=== PATIENT | female | born 1985 | race Caucasian/White ===

== ENCOUNTER 2016-08-24 07:50 | Emergency (ER) | payer MEDICAID ==
[2016-08-24] MEDS ORDERED: IBUPROFEN 800 MG TABLET PO ONE (08:23)
[2016-08-24] MEDS ORDERED: PREDNISONE 20 MG TABLET PO ONE (08:23)
[2016-08-24] MEDS ORDERED: CYCLOBENZAPRINE HCL 10 MG TABLET PO ONE (08:23)
--- NOTE | 2016-08-24 08:25 | ER Document Report ---
ED Hip Pain/Injury - General Chief Complaint: Hip Pain Stated Complaint: LEG/HIP PAIN Time Seen by Provider: 08/24/16 08:01 Mode of Arrival: Ambulatory Information source: Patient Notes: Patient is a 30-year-old female who presents to the ER today for right-sided hip pain radiating down the right leg with numbness and tingling. Patient had a history of multiple back surgeries and sciatica. She states that the only recent injury is 3 weeks ago when she did fall on that right hip. TRAVEL OUTSIDE OF THE [place] IN LAST 30 DAYS: No - Related Data Allergies/Adverse Reactions: codeine [Codeine] Allergy (Verified 08/24/16 07:54) ketorolac tromethamine [From Toradol] Allergy (Verified 08/24/16 07:54) Penicillins Allergy (Verified 08/24/16 07:54) Past Medical History - Social History Smoking Status: Current Every Day Smoker Frequency of alcohol use: None Drug Abuse: None Family History: Reviewed & Not Pertinent Patient has suicidal ideation: No Patient has homicidal ideation: No Renal/ Medical History: Denies: Hx Peritoneal Dialysis Malignancy Medical History: Reports: Hx Cervical Cancer Musculoskeltal Medical History: Reports Hx Musculoskeletal Deformity, Reports Hx Musculoskeletal Trauma Psychiatric Medical History: Reports: Hx Anxiety, Hx Attention Deficit Hyperactivity Disorder, Hx Depression Past Surgical History: Reports: Hx Cholecystectomy, Hx Gynecologic Surgery - left salpingectomy, oophrectomy, hysterectomy, Hx Hysterectomy, Hx Oral Surgery - 12-31-14, Hx Orthopedic Surgery - discectomy - Immunizations Immunizations up to date: Yes Hx Diphtheria, Pertussis, Tetanus Vaccination: Yes Review of Systems - Review of Systems Constitutional: No symptoms reported EENT: No symptoms reported Cardiovascular: No symptoms reported Respiratory: No symptoms reported Gastrointestinal: No symptoms reported Genitourinary: No symptoms reported Female Genitourinary: No symptoms reported Musculoskeletal: See HPI Skin: No symptoms reported Hematologic/Lymphatic: No symptoms reported Neurological/Psychological: No symptoms reported Physical Exam - Vital signs Vitals: Temp Pulse Resp BP Pulse Ox 98.2 F 82 16 125/70 99 08/24/16 07:54 08/24/16 07:54 08/24/16 07:54 08/24/16 07:54 08/24/16 07:54 - Notes Notes: PHYSICAL EXAMINATION: GENERAL: Uncomfortable appearing, but in no acute distress. HEAD: Atraumatic, normocephalic. EYES: Pupils equal round and reactive to light, extraocular movements intact, sclera anicteric, conjunctiva are normal. NECK: Normal range of motion, supple without lymphadenopathy LUNGS: CTAB and equal. No wheezes rales or rhonchi. HEART: Regular rate and rhythm without murmurs ABDOMEN: Soft, no tenderness. No guarding, no rebound BACK: right SI joint tender to palpation, no vertebral tenderness, normal ROM GI/: no CVA tenderness EXTREMITIES: Normal range of motion, no pitting edema. No cyanosis. NEUROLOGICAL: Cranial nerves grossly intact. Normal sensory/motor exams. PSYCH: Normal mood, normal affect. SKIN: Warm, Dry, normal turgor, no rashes or lesions noted Course - Re-evaluation Re-evalutation: 08/26/16 11:21 x rays normal. - Vital Signs Vital signs: Temp Pulse Resp BP Pulse Ox 97.9 F 72 12 103/61 99 08/24/16 10:32 08/24/16 10:32 08/24/16 10:32 08/24/16 10:32 08/24/16 10:32 Discharge - Discharge Clinical Impression: Sciatica, right side Condition: Stable Disposition: HOME, SELF-CARE Additional Instructions: Return immediately for any new or worsening symptoms. Follow up with primary care provider, call tomorrow to make followup appointment. Prescriptions: Cyclobenzaprine HCl [Flexeril 10 mg Tablet] 10 mg PO TIDP PRN #15 tab PRN Reason: Ibuprofen [Motrin 800 mg Tablet] 800 mg PO Q8H PRN #30 tab PRN Reason: Forms: Return to Work
[2016-08-24] MEDS ORDERED: ONDANSETRON 4 MG TAB.RAPDIS PO ONE (08:55)
--- NOTE | 2016-08-24 09:37 | RADIOLOGY REPORT (SQ) ---
EXAM DESCRIPTION: L SPINE 2 VIEWS COMPLETED DATE/TIME: 08/24/2016 9:30 am REASON FOR STUDY: fall, pain since, hx back sg COMPARISON: None. NUMBER OF VIEWS: Three views. TECHNIQUE: AP, lateral and sacral radiographic images acquired of the lumbar spine. LIMITATIONS: None. FINDINGS: MINERALIZATION: Normal. SEGMENTATION: Normal. No transitional anatomy. ALIGNMENT: Normal. VERTEBRAE: Maintained height. No fracture or worrisome bone lesion. DISCS: Preserved height. No significant osteophytes or end plate irregularity. POSTERIOR ELEMENTS: Pedicles and facets are intact. No pars defect or posterior arch defects. HARDWARE: There are postsurgical changes at L5-S1 stable in appearance. PARASPINAL SOFT TISSUES: Normal. PELVIS: Intact as visualized. No fractures or worrisome bone lesions. SI joints intact. OTHER: No other significant finding. IMPRESSION: Postsurgical changes at L5-S1. No acute findings. TECHNICAL DOCUMENTATION: JOB ID: [id number] [employer] All Rights Reserved
--- NOTE | 2016-08-24 09:38 | RADIOLOGY REPORT (SQ) ---
EXAM DESCRIPTION: SACROILIAC JOINTS 3 OR MORE COMPLETED DATE/TIME: 08/24/2016 9:30 am REASON FOR STUDY: fall, pain since, hx back sg COMPARISON: None. NUMBER OF VIEWS: Three views. TECHNIQUE: AP and oblique views of the sacroiliac joints. LIMITATIONS: None. FINDINGS: MINERALIZATION: Normal. BONES: No acute fracture or dislocation. No worrisome bone lesions. No significant osteophytes. JOINTS: The sacroiliac joints are patent. No unusual widening, sclerosis, or fusion. SOFT TISSUES: No soft tissue swelling. No radio-opaque foreign body. OTHER: There are postsurgical changes L5-S1. IMPRESSION: NORMAL STUDY OF THE SACROILIAC JOINTS. TECHNICAL DOCUMENTATION: JOB ID: [id number] [employer]- All Rights Reserved
[2016-08-24 10:37] VITALS: BP 103/61
== END 2016-08-24 10:40 | disposition home or self-care (01) ==
LOC: ER 07:50
DX: M54.31 Sciatica, right side (principal); M25.551 Pain in right hip; R20.0 Anesthesia of skin; R20.2 Paresthesia of skin; F17.200 Nicotine dependence, unspecified, uncomplicated; Z98.890 Other specified postprocedural states; Z91.81 History of falling; Z88.5 Allergy status to narcotic agent; Z88.0 Allergy status to penicillin; Z88.8 Allergy status to other drugs, medicaments and biological substances; Z85.41 Personal history of malignant neoplasm of cervix uteri
CPT/HCPCS: 99283; 72100; 72202; J3490 ×2; S0119; J7512

== ENCOUNTER 2016-12-06 19:46 | Emergency (ER) | payer MEDICAID ==
--- NOTE | 2016-12-06 19:58 | ER Document Report ---
ED Medical Screen (RME) - General Chief Complaint: Psych Problem Stated Complaint: DEPRESSION ANXIETY Time Seen by Provider: 12/06/16 19:55 Notes: Patient reports he uses cocaine Percocet and heroin. She states she used cocaine today and last used heroin about 3 days ago. She states she has not taken any Percocet pills in approximately 2 weeks. She states she is feeling very depressed and like she wants to kill herself. She states she has tried overdose in the past. TRAVEL OUTSIDE OF THE [place] IN LAST 30 DAYS: No - Related Data Allergies/Adverse Reactions: codeine [Codeine] Allergy (Verified 12/06/16 19:48) ketorolac tromethamine [From Toradol] Allergy (Verified 12/06/16 19:48) Penicillins Allergy (Verified 12/06/16 19:48) Past Medical History Renal/ Medical History: Denies: Hx Peritoneal Dialysis Malignancy Medical History: Reports: Hx Cervical Cancer Musculoskeltal Medical History: Reports Hx Musculoskeletal Deformity, Reports Hx Musculoskeletal Trauma Psychiatric Medical History: Reports: Hx Anxiety, Hx Attention Deficit Hyperactivity Disorder, Hx Depression Past Surgical History: Reports: Hx Cholecystectomy, Hx Gynecologic Surgery - left salpingectomy, oophrectomy, hysterectomy, Hx Hysterectomy, Hx Oral Surgery - 12-31-14, Hx Orthopedic Surgery - discectomy - Immunizations Immunizations up to date: Yes Hx Diphtheria, Pertussis, Tetanus Vaccination: Yes Physical Exam - Vital signs Vitals: Temp Pulse Resp BP Pulse Ox 97.5 F 73 18 103/81 99 12/06/16 19:49 12/06/16 19:49 12/06/16 19:49 12/06/16 19:49 12/06/16 19:49 Course - Vital Signs Vital signs: Temp Pulse Resp BP Pulse Ox 97.5 F 73 18 103/81 99 12/06/16 19:49 12/06/16 19:49 12/06/16 19:49 12/06/16 19:49 12/06/16 19:49
[2016-12-06] MEDS ORDERED: ONDANSETRON 4 MG TAB.RAPDIS PO ONE (20:12)
[2016-12-06] MEDS ORDERED: IBUPROFEN 600 MG TABLET PO ONE (20:12)
[2016-12-06] MEDS ORDERED: NICOTINE 21 MG/24 HR PATCH.TD24 TD ONE (20:31)
[2016-12-06 20:38] LABS: ABSOLUTE EOSINOPHILS # (AUTO) 0.2 10^3/uL (0.0-0.6); ABSOLUTE LYMPHOCYTES (AUTO) 2.4 10^3/uL (0.5-4.7); ABSOLUTE MONOCYTES (AUTO) 0.3 10^3/uL (0.1-1.4); ABSOLUTE NEUT (AUTO) 2.9 10^3/uL (1.7-8.2); BASOPHILS % (AUTO) 0.7 % (0-2); HEMATOCRIT 41.1 % (36.0-47.0); HEMOGLOBIN 14.1 g/dL (12.0-15.5); HGB HCT DIFFERENCE 1.2; LYMPHOCYTES % (AUTO) 40.5 % (13-45); MEAN CORPUSCULAR HEMOGLOBIN 31.8 pg (27.0-33.4); MEAN CORPUSCULAR HGB CONC 34.3 g/dL (32.0-36.0); MEAN CORPUSCULAR VOLUME 93 fl (80-97); MONOCYTES % (AUTO) 5.3 % (3-13); RED BLOOD COUNT 4.43 10^6/uL (3.72-5.28); RED CELL DISTRIBUTION WIDTH 12.8 % (11.5-14.0); SEGMENTED NEUTROPHILS % (AUTO) 50.5 % (42-78); WHITE BLOOD COUNT 5.8 10^3/uL (4.0-10.5)
[2016-12-06 20:40] LABS: APPEARANCE,URINE CLEAR; BILIRUBIN,URINE NEGATIVE (NEGATIVE); GLUCOSE, URINE NEGATIVE (NEGATIVE); KETONES,URINE NEGATIVE (NEGATIVE); LEUKOCYTE ESTERASE,URINE NEGATIVE (NEGATIVE); NITRITE,URINE NEGATIVE (NEGATIVE); PROTEIN,URINE NEGATIVE (NEGATIVE); UROBILINOGEN,URINE NEGATIVE mg/dL (<2.0)
[2016-12-06 20:54] LABS: URINE BARBITURATES SCREEN NEGATIVE; URINE METHADONE SCREEN NEGATIVE; URINE OPIATES LOW NEGATIVE; URINE PHENCYCLIDINE SCREEN NEGATIVE
[2016-12-06 20:56] LABS: ALANINE AMINOTRANSFERASE 33 U/L (9-52); ALBUMIN 4.4 g/dL (3.5-5.0); ALKALINE PHOSPHATASE 76 U/L (38-126); ANION GAP 15 (5-19); ASPARTATE AMINO TRANSFERASE 28 U/L (14-36); BILIRUBIN,DIRECT 0.3 mg/dL (0.0-0.4); BILIRUBIN,TOTAL 0.3 mg/dL (0.2-1.3); BLOOD UREA NITROGEN 14 mg/dL (7-20); CALCIUM 9.6 mg/dL (8.4-10.2); CARBON DIOXIDE 17 mmol/L (22-30); CHLORIDE 115 mmol/L (98-107); CREATININE RESULT 0.95 mg/dL (0.52-1.25); GLUCOSE 122 mg/dL (75-110); POTASSIUM 4.8 mmol/L (3.6-5.0); SODIUM 147.3 mmol/L (137-145); TOTAL PROTEIN 7.3 g/dL (6.3-8.2)
[2016-12-06 20:58] LABS: ALCOHOL < 10 mg/dL (NONE DETECTED)
[2016-12-06] MEDS ORDERED: HYDROXYZINE HCL INJ 50 MG/1 ML VIAL IM ONE (21:18)
[2016-12-06] MEDS ORDERED: NORMAL SALINE 1000 ML 1,000 ML IV ONE (21:29)
[2016-12-06] MEDS ORDERED: ONDANSETRON HCL INJ/PF 4 MG/2 ML SDV IV ONE (21:29)
--- NOTE | 2016-12-06 22:23 | ER Document Report ---
ED General - General Chief Complaint: Psych Problem Stated Complaint: DEPRESSION ANXIETY Time Seen by Provider: 12/06/16 19:55 Notes: 30-year-old patient presents emergency department with her [id number] stating that she is having drug withdrawal and that she would like to be treated for her drug withdrawal and her drug addiction. States that she has a history of using pain pills after getting hooked on them after surgery years ago , then she stopped using pain pills and started using cocaine after that she started using heroin and now she is using both. Patient states she is having difficulty quitting drugs on her own and would like help. States that sometimes she feels overwhelmed and thinks about hurting herself but she would never hurt herself because of her children. Does not have any plan and does not have any true suicidal intentions, no history of suicide in the past. Patient states she is having nausea, vomiting, diarrhea, headache, sweats and chills, abdominal cramping and muscle cramping. States that all of the symptoms are similar to withdrawal symptoms that she has had in the past. States that Zofran, Phenergan and clonidine have never worked for her in the past. Does not wish to try those medications now. Also states that she does not wish to do inpatient treatment as she has children at home that she would like to take care of. Presently the children are safe and staying with her grandfather. TRAVEL OUTSIDE OF THE [place] IN LAST 30 DAYS: No - Related Data Allergies/Adverse Reactions: codeine [Codeine] Allergy (Verified 12/06/16 19:48) ketorolac tromethamine [From Toradol] Allergy (Verified 12/06/16 19:48) Penicillins Allergy (Verified 12/06/16 19:48) Past Medical History - General Information source: Patient, Relative - Social History Smoking Status: Current Every Day Smoker Chew tobacco use (# tins/day): No Smoking Education Provided: No Frequency of alcohol use: Rare Drug Abuse: Cocaine, Heroin, Prescription drugs Lives with: Family, Spouse/Significant other Family History: Other - Mother with pain pill addiction as well Patient has suicidal ideation: No Patient has homicidal ideation: No Renal/ Medical History: Denies: Hx Peritoneal Dialysis Malignancy Medical History: Reports: Hx Cervical Cancer Musculoskeltal Medical History: Reports Hx Musculoskeletal Deformity, Reports Hx Musculoskeletal Trauma Psychiatric Medical History: Reports: Hx Anxiety, Hx Attention Deficit Hyperactivity Disorder, Hx Depression Past Surgical History: Reports: Hx Cholecystectomy, Hx Gynecologic Surgery - left salpingectomy, oophrectomy, hysterectomy, Hx Hysterectomy, Hx Oral Surgery - 12-31-14, Hx Orthopedic Surgery - discectomy - Immunizations Immunizations up to date: Yes Hx Diphtheria, Pertussis, Tetanus Vaccination: Yes Review of Systems - Review of Systems Constitutional: See HPI, Chills, Diaphoresis. denies: Fever EENT: No symptoms reported Cardiovascular: No symptoms reported Respiratory: No symptoms reported Gastrointestinal: See HPI, Diarrhea, Nausea, Vomiting Genitourinary: No symptoms reported Musculoskeletal: See HPI, Muscle pain Neurological/Psychological: Anxiety -: Yes All other systems reviewed and negative Physical Exam - Vital signs Vitals: Temp Pulse Resp BP Pulse Ox 97.5 F 73 18 103/81 99 12/06/16 19:49 12/06/16 19:49 12/06/16 19:49 12/06/16 19:49 12/06/16 19:49 Interpretation: Normal - Notes Notes: GENERAL: Alert, somewhat agitated, impatient. HEAD: Normocephalic, atraumatic EYES: Pupils equal, round and reactive to light, extraocular movements intact. ENT: Oral mucosa moist, tongue midline. NECK: Full range of motion, supple, trachea midline. No rhinorrhea LUNGS: Clear to auscultation bilaterally, no wheezes, rales or rhonchi, no respiratory distress. HEART: Regular rate and rhythm, no murmurs, gallops, rubs. ABDOMEN: Soft, nontender, nondistended, bowel sounds present in all 4 quadrants. EXTREMITIES: Moves all 4 extremities spontaneously, no edema, radial and dorsalis pedis pulses 2/4 bilaterally. No cyanosis. NEUROLOGICAL: Alert and oriented x3, normal speech, biceps and patellar DTRs 2+ bilaterally. PSYCH: Inpatient, agitated, mood is labile, goes from angry to tearful very rapidly, casts blame on her [id number] and her for causing her to feel this way. SKIN: Warm, Dry, normal turgor, no rashes or lesions noted. Course - Re-evaluation Re-evalutation: 12/06/16 22:22 CBC unremarkable, CMP shows low CO2 at 17 significant for possible dehydration, no acute renal failure is noted, glucose mildly elevated 122, urinalysis also shows dehydration with specific gravity of 1.030, hydrated with a liter of normal saline, treated with Zofran for nausea, patient states this did not work but she has not had any further vomiting in the room. Urinalysis shows cocaine but no other drugs, alcohol level, acetaminophen and salicylate are all undetectable. Patient is not tachycardic or hypertensive, she has very few signs of narcotic withdrawal at this time. Patient was offered Zofran, Bentyl, Phenergan, clonidine (clonidine is not actually indicated in this patient at this time due to the lack of tachycardia or hypertension but she was offered pills to go home with should she develop any), she states that none of these medications ever work for her. Discussed with patient the possibility of staying overnight to meet with psychology in the morning to discuss possible inpatient rehab treatment, patient at this time states that she has no interest in going inpatient as she is taking care of her kids, currently her children are safe and staying with her grandfather. I see no reason to refer this case to child protective services. At this point the patient states she does not feel like we have done anything for her and none of the medications of help, she wants to leave right now. Discharge instructions have been printed. She has been [facility] to [facility]. 12/06/16 23:01 Patient is now willing to stay, would like to see mental health in the morning for further consultation regarding antidepressants. Patient will be given single dose of Ambien this evening as she also has Ambien at home. Discussed by this is not a good long-term treatment plan to help her sleep. I do not see any signs of life-threatening withdrawal, she also is not a suicide risk at this time. She is a voluntary patient and is welcome to leave at any time. 12/06/16 23:57 As patient does not have any suicidal ideation nor does she have any thoughts of self-harm at this time I have instructed security not to take her belongings and not to assign a sitter, she does not have to be changed into paper scrubs. Patient is solely awaiting assessment by mental health in the morning to see if they can come up with a better plan than I have already given the patient for outpatient treatment for drug addiction. She is also waiting here as she is afraid that as soon as she leaves she will use. We can at least give her some temporary respite by keeping her in the emergency department overnight. - Vital Signs Vital signs: Temp Pulse Resp BP Pulse Ox 97.5 F 73 18 103/81 99 12/06/16 19:49 12/06/16 19:49 12/06/16 19:49 12/06/16 19:49 12/06/16 19:49 - Laboratory Result Diagrams: 12/06/16 19:58 12/06/16 19:58 Laboratory results interpreted by me: 12/06/16 19:58 Sodium 147.3 H Chloride 115 H Carbon Dioxide 17 L Glucose 122 H Salicylates < 1.0 L Acetaminophen < 10 L - EKG Interpretation by Me Additional EKG results interpreted by me: 12/06/16 22:21 EKG shows sinus rhythm at a rate of 78, normal axis, normal intervals, no ST segment elevations or depressions, no T-wave inversions per my interpretation. Discharge - Discharge Clinical Impression: Heroin use, Cocaine use Condition: Stable Disposition: HOME, SELF-CARE Additional Instructions: Today you did not have any signs of damage to your kidneys or your liver. I have prescribed you Zofran and Phenergan to help with your nausea and vomiting. You may use Imodium as directed [id number] for your diarrhea. Bentyl can help with your cramping abdominal pain. Your blood pressure and heart rate were normal and you have previously stated that clonidine does not help with your withdrawal symptoms. I recommend that you follow-up with [facility] as an outpatient to continue to discuss possible pharmacologic treatment for your anxiety and depression as well as her drug addiction. Please return to the emergency department for any new or concerning symptoms. Prescriptions: Dicyclomine HCl [Bentyl 20 mg Tablet] 20 mg PO QIDP PRN #20 tablet PRN Reason: Ondansetron [Zofran Odt 4 mg Tablet] 1 - 2 tab PO Q4H PRN #15 tab.rapdis PRN Reason: For Nausea/Vomiting Promethazine HCl [Phenergan 25 mg Tablet] 1 - 2 tab PO Q6H PRN #15 tablet PRN Reason: Referrals: [facility] [Provider Group] - Follow up as needed
[2016-12-06] MEDS ORDERED: ZOLPIDEM TARTRATE 5 MG TABLET PO ONE (23:01)
[2016-12-06] MEDS ORDERED: MAG HYDROX/AL HYDROX/SIMETH SUSP 30 ML UDCUP PO ONE (23:28)
--- NOTE | 2016-12-07 00:04 | EKG REPORT ---
SEVERITY:- NORMAL ECG - SINUS RHYTHM : Confirmed by: Sylvester Holliday 07-Dec-2016 00:02:48
[2016-12-07] MEDS ORDERED: IBUPROFEN 600 MG TABLET PO ONE (08:13)
--- NOTE | 2016-12-07 08:40 | PSYCHOLOGICAL NOTE ---
Psych Note - Psych Note Psych Note: 30-year-old patient presents emergency department with her [id number] stating that she is having drug withdrawal and that she would like to be treated for her drug withdrawal and her drug addiction. States that she has a history of using pain pills after getting hooked on them after surgery years ago , then she stopped using pain pills and started using cocaine after that she started using heroin and now she is using both. Patient states she is having difficulty quitting drugs on her own and would like help. States that sometimes she feels overwhelmed and thinks about hurting herself but she would never hurt herself because of her children. Does not have any plan and does not have any true suicidal intentions, no history of suicide in the past. Patient disclosed that she has been addicted to drugs and depressed "badly." She continued disclosed that she is had depression since she was a teenager and was diagnosed with "manic depression." Patient continued disclosed that she has anxiety and anger problems. Patient reports she was allowed to stay at [facility] to speak with the behavioral health team this morning to see if we could assist her because if she left [facility] last night she would have used. She states she used to take Celexa and had outpatient mental health services while living in [place]; however, approximately 2 months ago she stopped taking Celexa. Patient states that she has passive suicidal ideation "all the time." When asked if she is ever received inpatient treatment for either mental health or substance abuse patient responded "I refuse to go inpatient." Patient continued to state she has too many obligations such as her children and working to go inpatient and would rather have outpatient services. Patient says that she has been using drugs for the last 5 years. Clinician discussed treatment options, realistic expectations of sobriety, and encourage the patient to think about extended long-term treatment. Patient agrees to receive resource packet that includes both inpatient and outpatient substance abuse treatment. Patient is alert and orientated to person, place, time and circumstance. Mood is slightly irritable with restricted affect. Patient endorses passive suicidal ideation no plans means or intent. Patient denies homicidal ideation. Patient denies auditory visual hallucinations. Delusions are absent and behaviors congruent with intact reality based presentation i.e. organized, linear, rational thinking. Eye contact was fair. Conversational speech was within the normal rate, tone and prosody. Intellectual abilities appear to be within the average range. Attention and concentration are good. Insight, judgment, impulse control are fair as evidenced by patient attempting sobriety and knowing she needs help. 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 Patient does not meet IVC criteria per [place] GS 122C. Patient endorses chronic passive suicidal ideation i.e. no plans means or intent. Patient denies homicidal ideation. Delusions are absent and behaviors congruent with intact reality based presentation i.e. organized, linear, rational thinking. Patient discloses 5 years of substance abuse to include cocaine and heroin. She was concerned that she she left [facility] last night she would go out and used. Patient is requesting outpatient services and refuses inpatient substance abuse treatment. Clinician discussed treatment options and realistic expectations of sobriety which included encouraging the patient to think about extended long-term treatment and mixing antidepressants with cocaine or heroin. Patient agrees to receive resource packet which includes both inpatient and outpatient substance abuse treatment services. Dr. Valentine was consulted on the care management of this patient; attending physician is in agreement with recommendations and disposition.
[2016-12-07 10:49] VITALS: BP 102/71
== END 2016-12-07 10:09 | disposition home or self-care (01) ==
LOC: ER 19:46
DX: F11.10 Opioid abuse, uncomplicated (principal); F14.10 Cocaine abuse, uncomplicated; R11.2 Nausea with vomiting, unspecified; R19.7 Diarrhea, unspecified; R61 Generalized hyperhidrosis; R68.83 Chills (without fever); R10.9 Unspecified abdominal pain; E86.0 Dehydration; M79.1 Myalgia; F41.9 Anxiety disorder, unspecified; F17.200 Nicotine dependence, unspecified, uncomplicated; Z88.5 Allergy status to narcotic agent; Z88.0 Allergy status to penicillin; Z88.8 Allergy status to other drugs, medicaments and biological substances; Z85.41 Personal history of malignant neoplasm of cervix uteri
CPT/HCPCS: 93005; 99285; 96372; 96361; 96374; 36415; 80307 ×4; 85025; 81025; 80053; 81001; 93010; S0119; J3490 ×5; J3410; J2405; J7030

== ENCOUNTER 2017-01-27 06:50 | Emergency (ER) | payer MEDICAID, OTHER ==
[2017-01-27] MEDS ORDERED: HYDROXYZINE PAMOATE 50 MG CAPSULE PO ONE (07:26)
[2017-01-27] MEDS ORDERED: MAG HYDROX/AL HYDROX/SIMETH SUSP 30 ML UDCUP PO ONE (07:26)
[2017-01-27 07:30] LABS: ABSOLUTE EOSINOPHILS # (AUTO) 0.2 10^3/uL (0.0-0.6); ABSOLUTE LYMPHOCYTES (AUTO) 2.7 10^3/uL (0.5-4.7); ABSOLUTE MONOCYTES (AUTO) 0.5 10^3/uL (0.1-1.4); ABSOLUTE NEUT (AUTO) 2.9 10^3/uL (1.7-8.2); BASOPHILS % (AUTO) 0.5 % (0-2); EOSINOPHILS % (AUTO) 3.6 % (0-6); HEMATOCRIT 38.9 % (36.0-47.0); HEMOGLOBIN 13.3 g/dL (12.0-15.5); LYMPHOCYTES % (AUTO) 42.7 % (13-45); MEAN CORPUSCULAR HEMOGLOBIN 30.6 pg (27.0-33.4); MEAN CORPUSCULAR HGB CONC 34.1 g/dL (32.0-36.0); MEAN CORPUSCULAR VOLUME 90 fl (80-97); MONOCYTES % (AUTO) 7.4 % (3-13); RED BLOOD COUNT 4.33 10^6/uL (3.72-5.28); RED CELL DISTRIBUTION WIDTH 12.2 % (11.5-14.0); SEGMENTED NEUTROPHILS % (AUTO) 45.8 % (42-78); WHITE BLOOD COUNT 6.4 10^3/uL (4.0-10.5)
[2017-01-27 07:51] LABS: ALANINE AMINOTRANSFERASE 35 U/L (9-52); ALBUMIN 4.2 g/dL (3.5-5.0); ALKALINE PHOSPHATASE 61 U/L (38-126); ANION GAP 9 (5-19); ASPARTATE AMINO TRANSFERASE 25 U/L (14-36); BILIRUBIN,DIRECT 0.2 mg/dL (0.0-0.4); BILIRUBIN,TOTAL 0.2 mg/dL (0.2-1.3); BLOOD UREA NITROGEN 15 mg/dL (7-20); CALCIUM 9.7 mg/dL (8.4-10.2); CARBON DIOXIDE 28 mmol/L (22-30); CHLORIDE 105 mmol/L (98-107); CREATININE RESULT 0.88 mg/dL (0.52-1.25); GLUCOSE 86 mg/dL (75-110); LIPASE 64.6 U/L (23-300); POTASSIUM 4.2 mmol/L (3.6-5.0); SODIUM 141.5 mmol/L (137-145); TOTAL PROTEIN 6.9 g/dL (6.3-8.2)
[2017-01-27 08:02] LABS: CREATINE KINASE MB 1.47 ng/mL (<4.55)
[2017-01-27 08:04] LABS: TROPONIN I < 0.012 ng/mL
--- NOTE | 2017-01-27 08:23 | RADIOLOGY REPORT (SQ) ---
EXAM DESCRIPTION: CHEST SINGLE VIEW COMPLETED DATE/TIME: 01/27/2017 7:46 am REASON FOR STUDY: chest pain/neck pain COMPARISON: 2014. NUMBER OF VIEWS: One view. TECHNIQUE: Single frontal radiographic view of the chest acquired. LIMITATIONS: None. FINDINGS: LUNGS AND PLEURA: No opacities, masses or pneumothorax. No pleural effusion. MEDIASTINUM AND HILAR STRUCTURES: No masses. Contour normal. HEART AND VASCULAR STRUCTURES: Heart normal in size. Normal vasculature. BONES: No acute findings. HARDWARE: None in the chest. OTHER: No other significant finding. IMPRESSION: NO SIGNIFICANT RADIOGRAPHIC FINDING IN THE CHEST. TECHNICAL DOCUMENTATION: JOB ID: [id number] [employer]- All Rights Reserved
--- NOTE | 2017-01-27 08:25 | RADIOLOGY REPORT (SQ) ---
EXAM DESCRIPTION: CERV SP 3 VIEW OR LESS COMPLETED DATE/TIME: 01/27/2017 7:46 am REASON FOR STUDY: chest pain/neck pain COMPARISON: None. NUMBER OF VIEWS: Three views. TECHNIQUE: AP, lateral and odontoid radiographic images acquired of the cervical spine. LIMITATIONS: None. FINDINGS: MINERALIZATION: Normal. ALIGNMENT: Anatomic. VERTEBRAE: Vertebral bodies of normal height. DISCS: No significant disc space narrowing. No large osteophytes. HARDWARE: None in the spine. SOFT TISSUES: No masses or calcifications. Lung apices clear. OTHER: No other significant finding. IMPRESSION: NO SIGNIFICANT RADIOGRAPHIC FINDING IN THE CERVICAL SPINE. TECHNICAL DOCUMENTATION: JOB ID: [id number] [employer]- All Rights Reserved
[2017-01-27 08:26] LABS: APPEARANCE,URINE SLIGHTLY-CLOUDY; BILIRUBIN,URINE NEGATIVE (NEGATIVE); GLUCOSE, URINE NEGATIVE (NEGATIVE); KETONES,URINE NEGATIVE (NEGATIVE); LEUKOCYTE ESTERASE,URINE NEGATIVE (NEGATIVE); NITRITE,URINE NEGATIVE (NEGATIVE); PROTEIN,URINE NEGATIVE (NEGATIVE); URINE SPECIFIC GRAVITY 1.013; UROBILINOGEN,URINE NEGATIVE mg/dL (<2.0)
[2017-01-27 08:42] LABS: URINE BARBITURATES SCREEN NEGATIVE; URINE METHADONE SCREEN NEGATIVE; URINE OPIATES LOW NEGATIVE; URINE PHENCYCLIDINE SCREEN NEGATIVE
--- NOTE | 2017-01-27 08:53 | ER Document Report ---
ED Cardiac - General Chief Complaint: Chest Pain Stated Complaint: CHEST PAIN Time Seen by Provider: 01/27/17 07:11 Mode of Arrival: Ambulatory Information source: Patient Notes: Patient is a 31-year-old female who presents to the ER today for multiple weeks of bilateral numbness in her hands and arms. Patient denies any injury. As she denies history of this. Patient admits to chest pain in the center of her chest that comes and goes over the past couple of weeks as well. She states that it is like a pressure. She denies any cough, upper respiratory symptoms, fevers or chills. She states she is out of pain medication. TRAVEL OUTSIDE OF THE [place] IN LAST 30 DAYS: No - Related Data Allergies/Adverse Reactions: codeine [Codeine] Allergy (Verified 12/06/16 19:48) ketorolac tromethamine [From Toradol] Allergy (Verified 12/06/16 19:48) Penicillins Allergy (Verified 12/06/16 19:48) Past Medical History - General Information source: Patient - Social History Smoking Status: Current Every Day Smoker Chew tobacco use (# tins/day): No Drug Abuse: None Family History: Other - Mother with pain pill addiction as well Patient has suicidal ideation: No Patient has homicidal ideation: No Renal/ Medical History: Denies: Hx Peritoneal Dialysis Malignancy Medical History: Reports: Hx Cervical Cancer Musculoskeltal Medical History: Reports Hx Musculoskeletal Deformity, Reports Hx Musculoskeletal Trauma Psychiatric Medical History: Reports: Hx Anxiety, Hx Attention Deficit Hyperactivity Disorder, Hx Depression Past Surgical History: Reports: Hx Cholecystectomy, Hx Gynecologic Surgery - left salpingectomy, oophrectomy, hysterectomy, Hx Hysterectomy, Hx Oral Surgery - 12-31-14, Hx Orthopedic Surgery - discectomy - Immunizations Immunizations up to date: Yes Hx Diphtheria, Pertussis, Tetanus Vaccination: Yes Review of Systems - Review of Systems Constitutional: No symptoms reported EENT: No symptoms reported Cardiovascular: See HPI Respiratory: No symptoms reported Gastrointestinal: No symptoms reported Genitourinary: No symptoms reported Female Genitourinary: No symptoms reported Musculoskeletal: No symptoms reported Skin: No symptoms reported Hematologic/Lymphatic: No symptoms reported Neurological/Psychological: See HPI Physical Exam - Vital signs Vitals: Temp Pulse Resp BP Pulse Ox 98.3 F 73 18 114/61 100 01/27/17 06:50 01/27/17 06:50 01/27/17 06:50 01/27/17 06:50 01/27/17 06:50 - Notes Notes: PHYSICAL EXAMINATION: GENERAL: Well-appearing and in no acute distress. HEAD: Atraumatic, normocephalic. EYES: Pupils equal round and reactive to light, extraocular movements intact, sclera anicteric, conjunctiva are normal. ENT: ear canals without erythema or foreign body, TMs pearly andersen with good bony landmarks, nares patent, oropharynx clear without exudates. Moist mucous membranes. NECK: Normal range of motion, supple without lymphadenopathy LUNGS: CTAB and equal. No wheezes rales or rhonchi. HEART: chest nontender to palpation, Regular rate and rhythm without murmurs ABDOMEN: Soft, no tenderness. No guarding, no rebound BACK: no vertebral tenderness, normal ROM GI/: no CVA tenderness EXTREMITIES: Normal range of motion, no pitting edema. No cyanosis. NEUROLOGICAL: Cranial nerves grossly intact. Normal sensory/motor exams. PSYCH: Normal mood, normal affect. SKIN: Warm, Dry, normal turgor, no rashes or lesions noted Course - Re-evaluation Re-evalutation: 01/27/17 08:53 labwork is unremarkable today with normal cardiac enzymes, chest and cervical spine x ray negative for any acute pathology. pt has a history of overdose, cocaine use, heroin use, I will not provider her with narcotic pain medication today with no objective findings. I did give her vistaril and maalox here. - Vital Signs Vital signs: Temp Pulse Resp BP Pulse Ox 98.3 F 73 30 H 103/43 L 95 01/27/17 06:50 01/27/17 06:50 01/27/17 07:11 01/27/17 07:11 01/27/17 07:11 - Laboratory Result Diagrams: 01/27/17 07:15 01/27/17 07:15 Discharge - Discharge Clinical Impression: Numbness and tingling in both hands, Anxiety and depression Chronic pain Qualifiers: Chronic pain type: other chronic pain Qualified Code(s): G89.29 - Other chronic pain Condition: Stable Disposition: HOME, SELF-CARE Instructions: Chest Pain of Unclear Cause ([facility]) Additional Instructions: Return immediately for any new or worsening symptoms. Follow up with primary care provider, call tomorrow to make followup appointment. Referrals: IVANNA ROSS MD [Primary Care Provider] - Follow up as needed
[2017-01-27 09:21] VITALS: BP 107/48
--- NOTE | 2017-01-27 13:39 | EKG REPORT ---
SEVERITY:- NORMAL ECG - SINUS RHYTHM : Confirmed by: Sylvester Holliday 27-Jan-2017 13:39:01
== END 2017-01-27 09:22 | disposition home or self-care (01) ==
LOC: ER 06:50
DX: F41.9 Anxiety disorder, unspecified (principal); F32.9 Major depressive disorder, single episode, unspecified; G89.29 Other chronic pain; R07.9 Chest pain, unspecified; R20.0 Anesthesia of skin; F17.200 Nicotine dependence, unspecified, uncomplicated
CPT/HCPCS: 36415; 71010; 72040; 80053; 80307; 81001; 82553; 83690; 84484; 85025; 93005; 93010; 99285

== ENCOUNTER 2017-04-02 20:20 | Emergency (ER) | payer OTHER, MEDICAID ==
[2017-04-02] MEDS ORDERED: TETRACAINE HCL 0.5% OPH SOLN 2 ML OU ONE (21:22)
[2017-04-02] MEDS ORDERED: OXYCODONE-ACETAMINOPHEN 5-325 MG TABLET PO ONE (21:46)
--- NOTE | 2017-04-02 21:52 | ER Document Report ---
ED Eye Complaint - General Chief Complaint: Bilateral eye pain/ redness Stated Complaint: EYE SWELLING Time Seen by Provider: 04/02/17 21:11 Mode of Arrival: Ambulatory Information source: Patient Notes: This is a 31-year-old female that presents to the emergency room with bilateral eye pain and irritation. Patient states that 2 weeks ago she got Octopus juice in her eye at work. She states that she was experiencing irritation in the right eye since that time and went to [facility] ER 5 days ago (March 28). The patient states she was started on Augmentin and sulfacetamide eyedrops. She states that she thinks her eye symptoms had gotten significantly worse after that. She was only putting in the eyedrops in her right eye (the one she initially had symptoms in). Yesterday, she thought she had irritation in the left eye and put some other drops in the left eye and since that time her eyes have gotten red bloodshot with irritation. TRAVEL OUTSIDE OF THE [place] IN LAST 30 DAYS: No - HPI Onset: Last week Eye location: Bilateral Injury: No Occurred at: Home Quality of pain: Achy Severity: Mild Pain Level: 1 Exposure: Other - See H&P Safety glasses worn: No Contact lenses worn: No Associated symptoms: None - Related Data Allergies/Adverse Reactions: codeine [Codeine] Allergy (Verified 12/06/16 19:48) ketorolac tromethamine [From Toradol] Allergy (Verified 12/06/16 19:48) Penicillins Allergy (Verified 12/06/16 19:48) Past Medical History - General Information source: Patient - Social History Smoking Status: Never Smoker Cigarette use (# per day): No Chew tobacco use (# tins/day): No Smoking Education Provided: No Frequency of alcohol use: None Drug Abuse: None Lives with: Family Family History: Other - Mother with pain pill addiction as well Patient has suicidal ideation: No Patient has homicidal ideation: No Renal/ Medical History: Denies: Hx Peritoneal Dialysis Malignancy Medical History: Reports: Hx Cervical Cancer Musculoskeltal Medical History: Reports Hx Musculoskeletal Deformity, Reports Hx Musculoskeletal Trauma Psychiatric Medical History: Reports: Hx Anxiety, Hx Attention Deficit Hyperactivity Disorder, Hx Depression Past Surgical History: Reports: Hx Cholecystectomy, Hx Gynecologic Surgery - left salpingectomy, oophrectomy, hysterectomy, Hx Hysterectomy, Hx Oral Surgery - 12-31-14, Hx Orthopedic Surgery - discectomy - Immunizations Immunizations up to date: Yes Hx Diphtheria, Pertussis, Tetanus Vaccination: Yes Review of Systems - Review of Systems Constitutional: denies: Chills, Fever EENT: See HPI Cardiovascular: No symptoms reported Respiratory: No symptoms reported Gastrointestinal: No symptoms reported Genitourinary: No symptoms reported Female Genitourinary: No symptoms reported Musculoskeletal: No symptoms reported Skin: No symptoms reported Hematologic/Lymphatic: No symptoms reported Neurological/Psychological: No symptoms reported Physical Exam - Vital signs Vitals: Temp Pulse Resp BP Pulse Ox 97.6 F 77 18 114/61 98 04/02/17 21:04 04/02/17 21:04 04/02/17 21:04 04/02/17 21:04 04/02/17 21:04 Notes: Physical exam: GENERAL: 31-year-old female, alert and oriented 3, no acute distress HEAD: Atraumatic, normocephalic. EYES: Pupils equal round and reactive to light, extraocular movements intact, sclera anicteric, conjunctiva are injected bilaterally, the right is worse than the left. There is no evidence of stye formation. There is no hyphema. Mckeon symptoms were improved after tetracaine. Fluoroscopy seen shows no uptake. ENT: TMs normal, nares patent, oropharynx clear without exudates. Moist mucous membranes. NECK: Normal range of motion, supple without obvious mass or JVD. NEUROLOGICAL: Cranial nerves II through XII grossly intact. Normal speech, moving all extremities. PSYCH: Normal mood, normal affect. SKIN: Warm, Dry, normal turgor, no rashes or lesions noted. Course - Re-evaluation Re-evalutation: 04/02/17 21:52 Given the presentation: It sounds like the patient's conjunctival irritation significantly worsened Saleem the sulfa eyedrops. Additionally, she was only taking the eyedrops in the right eye and yesterday when she started using them that in the left eye, the left eye started having significant conjunctival irritation. I do not see any evidence of proptosis. The patient's vision is good. Her pupils are equal and reactive. Fluorescein is negative. I have advised her to stop her medicines, use cool product compresses over her eyes, give her some short-term pain medicine and she will follow-up with the eye doctor (I will give her a contact number to call for tomorrow). I will also give her a work statement tomorrow so she could go to the eye doctor. - Vital Signs Vital signs: Temp Pulse Resp BP Pulse Ox 98.4 F 76 12 135/82 H 98 04/02/17 22:11 04/02/17 22:11 04/02/17 22:11 04/02/17 22:11 04/02/17 22:11 Discharge - Discharge Clinical Impression: Bilateral conjunctival irritation, Allergic conjunctivitis Condition: Stable Disposition: HOME, SELF-CARE Instructions: Conjunctivitis, Allergic Additional Instructions: I recommend stopping both the eyedrops and the oral antibiotic. Use cool compresses several times a day over both eyes. Can use lubricate her (methylcellulose) eyedrops to keep the eyes moist. I want you to follow-up with the eye doctor tomorrow. The pain medicine you're taking prescribed as a narcotic. There are several important things you should know about this medicine: 1. This medicine contains Tylenol: It is important that you do not take Tylenol (or acetaminophen) while on this medicine. Tylenol is metabolized by the liver and taking too much Tylenol (acetaminophen) can lay to liver damage and even liver failure. 2. Taking narcotics for too long can lead to physical and mental dependence. Take this medicine only if really needed and in the lowest quantity to achieve pain relief. 3. Do not drink alcohol while on this medicine. Alcohol interacts with narcotics and the combination can be dangerous. 4. Do not drive or operate machinery while on this medicine. 5. Narcotics do cause constipation, so drink plenty of fluids and daily stool softeners. Prescriptions: Oxycodone HCl/Acetaminophen [Percocet 5-325 mg Tablet] 1 - 2 tab PO ASDIR PRN # 15 tablet PRN Reason: Forms: Return to Work Referrals: FELIX SILVERMAN DO [ACTIVE STAFF] - Follow up tomorrow
[2017-04-02 22:12] VITALS: BP 135/82
== END 2017-04-02 22:13 | disposition home or self-care (01) ==
LOC: ER 20:20
DX: H10.13 Acute atopic conjunctivitis, bilateral (principal); H57.13 Ocular pain, bilateral
CPT/HCPCS: 99283

== ENCOUNTER 2017-07-08 13:11 | Emergency (ER) | payer OTHER, MEDICAID ==
[2017-07-08 13:18] VITALS: BP 115/68
--- NOTE | 2017-07-08 13:28 | ER Document Report ---
ED Fall - General Chief Complaint: Fall Stated Complaint: ARM PAIN Time Seen by Provider: 07/08/17 13:27 Mode of Arrival: Ambulatory Information source: Patient Notes: 31-year-old female presented to ED for complaint of right shoulder pain after she fell off of a ladder yesterday at work she states she was about 10 feet up and she bounced all the way down all the runs injuring her right shoulder. She states she took some ibuprofen last night and this morning thinking she was going to be okay but the pain has continued. She is alert oriented, speaking in full sentences, pupils equal and react to light, respirations regular and unlabored, and walking with a even steady gait. Patient states the only place she is hurting is her right shoulder and the back of her right shoulder. TRAVEL OUTSIDE OF THE [place] IN LAST 30 DAYS: No - HPI Occurred: Yesterday Where: Work Context: Fell from height - Off a ladder Associated symptoms: None Location of injury/pain: Shoulder - Right shoulder and the back of the shoulder Quality of pain: Achy, Sharp Severity: Moderate Pain Level: 4 - Related data Allergies/Adverse Reactions: codeine [Codeine] Allergy (Verified 12/06/16 19:48) ketorolac tromethamine [From Toradol] Allergy (Verified 12/06/16 19:48) Penicillins Allergy (Verified 12/06/16 19:48) Past Medical History - General Information source: Patient - Social History Smoking Status: Current Every Day Smoker Cigarette use (# per day): Yes - Half a pack per day Chew tobacco use (# tins/day): No Smoking Education Provided: Yes - 4 minutes Frequency of alcohol use: None Drug Abuse: None 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[employer] Lives with: Family - Lives alone with her children Family History: Reviewed & Not Pertinent, Other - Mother with pain pill addiction as well - Past Medical History Cardiac Medical History: Reports: None Pulmonary Medical History: Reports: None EENT Medical History: Reports: None Neurological Medical History: Reports: None Endocrine Medical History: Reports: None Renal/ Medical History: Reports: None Malignancy Medical History: Reports: Hx Cervical Cancer GI Medical History: Reports: None Musculoskeltal Medical History: Reports Hx Musculoskeletal Deformity, Reports Hx Musculoskeletal Trauma Skin Medical History: Reports None Psychiatric Medical History: Reports: Hx Anxiety, Hx Attention Deficit Hyperactivity Disorder, Hx Depression Traumatic Medical History: Reports: Hx Fractures - Coccyx Infectious Medical History: Reports: None Past Surgical History: Reports: Hx Cholecystectomy, Hx Hysterectomy, Hx Oral Surgery - 12-31-14, Hx Orthopedic Surgery - discectomy - Immunizations Immunizations up to date: Yes Hx Diphtheria, Pertussis, Tetanus Vaccination: Yes Review of Systems - Review of Systems Constitutional: No symptoms reported EENT: No symptoms reported Cardiovascular: No symptoms reported Respiratory: No symptoms reported Gastrointestinal: No symptoms reported Genitourinary: No symptoms reported Female Genitourinary: No symptoms reported Musculoskeletal: Joint pain, Muscle pain. denies: Joint swelling Skin: No symptoms reported Hematologic/Lymphatic: No symptoms reported Neurological/Psychological: No symptoms reported -: Yes All other systems reviewed and negative Physical Exam - Vital signs Vitals: Temp Pulse Resp BP Pulse Ox 98.8 F 60 18 115/68 100 07/08/17 13:15 07/08/17 13:15 07/08/17 13:15 07/08/17 13:15 07/08/17 13:15 Interpretation: Normal - General General appearance: Appears well, Alert - HEENT Head: Normocephalic, Atraumatic Eyes: Normal Pupils: PERRL - Respiratory Respiratory status: No respiratory distress Chest status: Nontender Breath sounds: Normal Chest palpation: Normal - Cardiovascular Rhythm: Regular Heart sounds: Normal auscultation Murmur: No - Abdominal Inspection: Normal Distension: No distension Bowel sounds: Normal Tenderness: Nontender Organomegaly: No organomegaly - Back Back: Normal, Nontender - Extremities General upper extremity: Normal inspection, Normal color, Normal temperature General lower extremity: Normal inspection, Nontender, Normal color, Normal ROM , Normal temperature, Normal weight bearing. No: Yaya's sign Shoulder: Tender, Limited ROM - The pain. No: Abrasion, Deformity, Dislocation , Ecchymosis, Instability, Laceration - Neurological Neuro grossly intact: Yes Cognition: Normal Orientation: AAOx4 [place] Coma Scale Eye Opening: Spontaneous [place] Coma Scale Verbal: Oriented Robert Coma Scale Motor: Obeys Commands Robert Coma Scale Total: 15 Speech: Normal Motor strength normal: LUE, RUE, LLE, RLE Sensory: Normal - Psychological Associated symptoms: Normal affect, Normal mood - Skin Skin Temperature: Warm Skin Moisture: Dry Skin Color: Normal Course - Re-evaluation Re-evalutation: 07/08/17 18:34 X-rays discussed with patient. Patient was given a small prescription of Ultram. Patient refused sling. Patient was instructed to please follow-up with orthopedics. - Vital Signs Vital signs: Temp Pulse Resp BP Pulse Ox 98.8 F 60 18 115/68 100 07/08/17 13:15 07/08/17 13:15 07/08/17 13:15 07/08/17 13:15 07/08/17 13:15 - Diagnostic Test Radiology reviewed: Image reviewed, Reports reviewed Discharge - Discharge Clinical Impression: Right shoulder injury Qualifiers: Encounter type: initial encounter Qualified Code(s): S49.91XA - Unspecified injury of right shoulder and upper arm, initial encounter Condition: Stable Disposition: HOME, SELF-CARE Additional Instructions: Shoulder Injury You have injured your shoulder. This usually results from stretching or tearing of the tendons during trauma. Time and protection are required in order to heal properly. Many injuries are quite disabling, and should be taken seriously. Initial treatment includes cold packs and a sling to rest the shoulder. The physician has assessed the seriousness of your injury, and has outlined a treatment plan. Understand that this treatment may change, depending on how you progress. If a re-examination was recommended, it is important that you follow up as instructed. Some shoulder injuries (such as partial tear of the rotator cuff) are only suspected after you've failed to improve. Call us if there's severe pain, numbness, or loss of function. Ultram Ultram is an excellent drug for pain relief. It is not a narcotic, but it works in a similar way. Ultram can take up to two hours for full effect. Although not addicting, Ultram is best avoided in patients with a history of drug abuse. Ultram should not be used with alcohol, sleeping pills, or narcotics. If you're prone to seizures, Ultram can make you more likely to have a seizure. Ultram can be hazardous when combined with MAO-inhibitor antidepressants (such as Nardil or Parnate). Be sure your doctor is aware of all medicines you are taking. Persons with severe liver or kidney disease should increase the time between doses of Ultram. Discuss this with your doctor if you're uncertain. Side effects of Ultram can include dizziness, nausea, constipation, sleepiness, and itching. (These side effects are also seen with narcotic pain medicines.) Please call your doctor if you have other disturbing effects. Exercise Program for the Shoulder Since the shoulder moves in so many directions, the joint attachment is weak. Muscles provide most of the stability to the shoulder. You must exercise your shoulder to prevent painful instability or stiffening. PASSIVE - These may be begun within a few days of the injury. While standing, lean forward, allowing the arm to hang down towards the floor. Move the arm in small circles while slowly twisting your chest towards and away from the hanging arm. Do this for one minute. ACTIVE - These may be performed when the doctor gives permission. Begin with the arms at the sides. Raise the arms forward (shoulder's width apart) until they reach shoulder level. Then slowly swing both arms back until they are aiming straight out away from each other. Then bring them forward again, and finally, lower them to your sides. Repeat 20 to 30 times. As you improve, put weights in your hands for the exercise. Start with one pound, and work up to 10 pounds. Never use more than is comfortable. Athletes may work up to 30 pounds. CONTUSION: Your injury has resulted in a contusion -- a crushing of the deep tissues. No injury to important structures was detected during the physician's exam. Contusions vary in the amount of pain they cause, and in the length of time required for healing. Typically, the area will become bruised, and will remain painful to touch for two or three weeks. However, most patients are back to working and playing within a few days. After the initial period of rest and cold-packs, your symptoms (together with the doctor's recommendations) will determine how rapidly you can get back to full activity. Usually this means "do what feels okay, but don't do things that hurt." If re-examination was recommended, it's important to follow up as instructed. Call the doctor or return any time if pain increases, if swelling becomes severe, if you develop numbness or weakness in an injured extremity, or if any other alarming symptoms occur. USE OF TYLENOL (ACETAMINOPHEN): Acetaminophen may be taken for pain relief or fever control. It's much safer than aspirin, offering a wider range of "safe" dosages. It is safe during . Some brand names are Tylenol, Panadol, Datril, Anacin 3, Tempra, and Liquiprin. Acetaminophen can be repeated every four hours. The following are maximum recommended dosages: WEIGHT Dose Drops Elixir Chewable( 80mg) (LBS.) drprs=droppers tsp=teaspoon 6 40 mg 0.4 ml (1/2) 6-11 80 mg 0.8 ml (full) tsp 1 tab 12-16 120 mg 1 1/2 drprs 3/4 tsp 1 1/2 tabs 17-23 160 mg 2 drprs 1 tsp 2 tabs 24-30 240 mg 3 drprs 1 1/2 tsp 3 tabs 30-35 320 mg 2 tsp 4 tabs 36-41 360 mg 2 1/4 tsp 4 1/2 tabs 42-47 400 mg 2 1/2 tsp 5 tabs 48-53 480 mg 3 tsp 6 tabs 54-59 520 mg 3 1/4 tsp 6 1/2 tabs 60-64 560 mg 3 1/2 tsp 7 tabs 65-70 600 mg 3 3/4 tsp 7 1/2 tabs 71-76 640 mg 4 tsp 8 tabs 77-82 720 mg 4 1/2 tsp 9 tabs 83-88 800 mg 5 tsp 10 tabs >89 pounds or adults 650 mg to 900 mg Acetaminophen can be repeated every four hours. Maximum dose not to exceed 4000 mg a day. These maximum recommended dosages are slightly higher than the dosages written on the product container, but these dosages are very safe and below the toxic dosage for acetaminophen. ICE PACKS: Apply ice packs frequently against the painful area. Many different schedules are recommended, such as "20 minutes on, 20 minutes off" or "one hour ice, two hours rest." If you need to work, you may need to go longer between ice treatments. You should plan to have the area ice packed AT LEAST one fourth of the time. The ice should be applied over the wrap, tape, or splint, or over a layer of cloth -- not directly against the skin. Some ice bags have a built-in cloth and can be put directly on the skin. WARM PACKS: After approximately two days, apply gentle heat (such as a heating pad or hot water bottle) for about 20 to 30 minutes about every two hours -- at least four times daily. Warmth and elevation will help you make a more rapid recovery , and will ease the pain considerably. Do not use HOT heat, and never apply heat for longer than 30 minutes. The continuous heat can invisibly damage skin and muscles -- even when no burn is seen on the surface. Damaged muscles can make you MORE sore. FOLLOW-UP CARE: If you have been referred to a physician for follow-up care, call the physician s office for an appointment as you were instructed or within the next two days. If you experience worsening or a significant change in your symptoms, notify the physician immediately or return to the Emergency Department at any time for re-evaluation. Prescriptions: Tramadol HCl [Ultram] 50 mg PO DAILYP PRN #5 tablet PRN Reason: Forms: Return to Work Referrals: DEMETRIS GROSS MD [ACTIVE STAFF] - Follow up as needed
--- NOTE | 2017-07-08 14:05 | RADIOLOGY REPORT (SQ) ---
EXAM DESCRIPTION: SHOULDER RIGHT 2 OR MORE VIEWS COMPLETED DATE/TIME: 07/08/2017 1:57 pm REASON FOR STUDY: pain and fall COMPARISON: 04/10/2008. NUMBER OF VIEWS: Three views. TECHNIQUE: Internal rotation, external rotation, and Y view images acquired of the right shoulder. LIMITATIONS: None. FINDINGS: MINERALIZATION: Normal. BONES: No acute fracture or dislocation. No worrisome bone lesions. JOINTS: No dislocation. VISUALIZED LUNGS AND RIBS: No pneumothorax. No rib fracture. SOFT TISSUES: No radiopaque foreign body. OTHER: No other significant finding. IMPRESSION: NEGATIVE STUDY OF THE RIGHT SHOULDER. NO RADIOGRAPHIC EVIDENCE OF ACUTE INJURY. TECHNICAL DOCUMENTATION: JOB ID: [id number] [employer] All Rights Reserved Reading location - IP/workstation name: [email or web address]
== END 2017-07-08 14:19 | disposition home or self-care (01) ==
LOC: ER 13:11
DX: S49.91XA Unspecified injury of right shoulder and upper arm, initial encounter (principal); M25.511 Pain in right shoulder; W11.XXXA Fall on and from ladder, initial encounter; Y99.0 Civilian activity done for income or pay; F17.210 Nicotine dependence, cigarettes, uncomplicated; Z71.6 Tobacco abuse counseling; Z88.5 Allergy status to narcotic agent; Z88.8 Allergy status to other drugs, medicaments and biological substances; Z88.0 Allergy status to penicillin; Z85.41 Personal history of malignant neoplasm of cervix uteri
CPT/HCPCS: 99283; 99406